=== PATIENT | female | born 1960 | race Caucasian/White ===

== ENCOUNTER → 2017-07-28 | Outpatient (CLI) | payer OTHER | LOC: RAD 08:18 | DX: Z12.31 Encounter for screening mammogram for malignant neoplasm of breast (principal) ==

== ENCOUNTER 2018-02-14 01:40 | Inpatient (IN) | payer OTHER ==
[~2018-02-14] VITALS: Ht 160 cm; Wt 90.7 kg
--- NOTE | ~2018-02-14 | HC ---
[facility] [place] [address] CONSULTATION Name: JENNIFERJOCY Bora Room #: 449-I [facility] IN ..#: [id number] Admission: 02/14/18 Attend Phys: Rocky Avina MD Discharge: 02/14/18 Date of : 60 Report #: [id number] THIS REPORT FOR: //name// CC: Rocky Chauhan REASON FOR CONSULTATION: Atrial fibrillation. HISTORY OF PRESENT ILLNESS: The patient is a 57-year-old woman with history of hypertension and diabetes. She awakened about 1:00 a.m. with palpitations. This was associated with elevated blood pressure. She thought that this was atrial fibrillation as it runs in her family. She presented to the Emergency Department where indeed atrial fibrillation was confirmed, with a rapid ventricular response. In the process of being electrically cardioverted, she converted spontaneously to sinus rhythm. Her symptoms all resolved. She denies chest pain, pressure or ischemic type symptoms. Her last stress test was probably 7 or 8 years ago. No history of near syncope or syncope. No bleeding issues or problems in the past. ALLERGIES: SHE IS ALLERGIC TO PENICILLIN AND SULFA. MEDICATIONS: Include metformin 500 mg daily, levothyroxine 112 mcg daily. PAST MEDICAL HISTORY: Medical records have been reviewed and include a history of hypertension, diabetes, hypothyroidism. 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 She is a nonsmoker, nondrinker. FAMILY HISTORY: Notable for mother with atrial fibrillation. Father had bypass surgery. REVIEW OF SYSTEMS: All systems negative except as that noted above. PHYSICAL EXAMINATION: GENERAL: Reveals a pleasant woman in no distress. VITAL SIGNS: Blood pressure is 146/79, heart rate is 78 and regular. She is afebrile. HEENT: There are neither xanthelasma, subcutaneous xanthomata, oral mucosal or digital cyanosis or kyphoscoliosis present. CHEST: Clear to auscultation and percussion. CARDIAC: Regular rate and rhythm with normal S1, S2. No murmurs or rubs. ABDOMEN: Soft and nontender. EXTREMITIES: Without cyanosis, clubbing or edema. Radial pulses are 2+. NEUROLOGIC: She is alert with a nonfocal exam. LABORATORY DATA: EKG: Atrial fibrillation with a rapid ventricular response. [facility] [address] [place] [address] CONSULTATION Name: JOCY RODRIGUEZ Room #: 449-I [facility].#: [id number] Admission: 02/14/18 Attend Phys: Rocky Avina MD Discharge: 02/14/18 Date of : 60 Report #: [id number] Sodium is 140, potassium 3.5, creatinine 1.2, LDL 131, total cholesterol 229, cholesterol 302. White count 5.8, hemoglobin 14, hematocrit 42, platelet count 200. TSH 2.29. IMPRESSION: 1. Atrial fibrillation, now sinus rhythm. 2. Hypertension. 3. Diabetes. 4. Dyslipidemia. RECOMMENDATIONS: 1. Low dose daily aspirin, metoprolol succinate added. 2. Echocardiogram with Doppler. 3. Stress echocardiogram on medicine for recurrence, consider antiarrhythmic therapy or possible ablation. 4. Consider outpatient event recorder. Low threshold for instituting long-term anticoagulant therapy in light of her elevated -- CHADS-VASc score. By: [id number] Jose Francisco John MD, FACC /nt
--- NOTE | ~2018-02-14 | EKG ---
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 PAREKH : 1960 Requested By: Gifty Bridges Order Number: [id number] MD: Jose Francisco John Measurements Intervals [place] Rate: 98 P: 34 MS: 139 QRS: -8 QRSD: 89 T: 18 QT: 348 QTc: 445 Interpretive Statements Sinus rhythm Poor R wave progression Compared to ECG 07/05/2005 05:30:57 Sinus rhythm has replaced atrial fibrillation Electronically Signed On 02-14-2018 9:16:06 CDT by Jose Francisco John [email or web address] <ELECTRONICALLY SIGNED> By: Jose Francisco John MD, [facility] 02/14/18 0916 0245 0245 Jose Francisco John MD, [facility] /EPI
--- NOTE | ~2018-02-14 | EKG ---
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 STEVE : 1960 Requested By: Jose Francisco John Order Number: [id number] MD: Jose Francisco John Measurements Intervals [place] Rate: 65 P: -6 MI: 144 QRS: 0 QRSD: 91 T: 16 QT: 396 QTc: 412 Interpretive Statements Sinus rhythm Normal tracing Compared to ECG 02/14/2018 02:45:31 Poor R-wave progression no longer present Electronically Signed On 02-14-2018 16:29:42 CDT by Jose Francisco John [email or web address] <ELECTRONICALLY SIGNED> By: Jose Francisco John MD, FAC 02/14/18 1629 1018 1018 Jose rFancisco John MD, [facility] /EPI
--- NOTE | ~2018-02-14 | 2DMMODE ---
[facility] [address] [facility] [place] [address] 2 D/M-MODE ECHOCARDIOGRAM Name: JOCY RODRIGUEZ Room #: 449-I [facility] IN [facility]#: [id number] Admission: 02/14/18 Attend Phys: Rocky Avina, Discharge: Date of : 60 Date of Service: 02/14/18 1000 Report #: [id number] THIS REPORT FOR: //name// APPROVED REPORT Study performed: 02/14/2018 08:37:52 EXAM: Comprehensive 2D, Doppler, and color-flow Echocardiogram Patient Location: Echo lab Room #: [facility] Status: routine BSA: 1.93 HR: 80 bpm BP: 146/79 mmHg Rhythm: NSR Other Information Study Quality: Adequate Indications Atrial Fibrillation Hypertension/HDD 2D Dimensions RVDd: 32.12 mm IVSd: 11.12 (7-11mm) LVOT Diam: 20.02 (18-24mm) LVDd: 40.66 mm PWd: 10.70 (7-11mm) Ascending Ao: 30.67 (22-36mm) LVDs: 25.16 (25-40mm) Aortic Root: 29.60 mm IVC: 15.00 mm Volumes Left Atrial Volume (Systole) Single Plane 4CH: 49.72 mL Single Plane 2CH: 40.89 mL LA ESV Index: 28.00 mL/m2 Aortic Valve AoV Peak Jac.: 1.47 m/s AO Peak Gr.: 8.69 mmHg LVOT Max P.85 mmHg LVOT Max V: 1.10 m/s SAYDA Vmax: 2.35 cm2 Mitral Valve E/A Ratio: 1.5 MV Decel. Time: 162.55 ms [facility] [place] [address] [place] [address] 2 D/M-MODE ECHOCARDIOGRAM Name: JOCY RODRIGUEZ Room #: [facility] IN [facility]#: [id number] Admission: 02/14/18 Attend Phys: Rocky Avina, Discharge: Date of : 60 Date of Service: 02/14/18 1000 Report #: [id number] MV E Max Jac.: 0.90 m/s MV A Jac.: 0.62 m/s MV PHT: 47.14 ms IVRT: 101.50 ms Pulmonary Valve PV Peak Jac.: 1.15 m/s PV Peak Gr.: 5.25 mmHg Pulmonary Vein P Vein S: 0.76 m/s P Vein A: 0.43 m/s P Vein D: 0.52 m/s P Vein A Dur.: 96.9 msec P Vein S/D Ratio: 1.46 Left Ventricle The left ventricle is normal size. There is normal LV segmental wall motion. There is normal left ventricular wall thickness. Left ventricular systolic function is normal. The left ventricular ejection fraction is within the normal range. LVEF is 55-60%. The left ventricular diastolic function is normal. Right Ventricle The right ventricle is normal size. The right ventricular systolic function is normal. Atria The left atrium size is normal. The right atrium size is normal. Aortic Valve The aortic valve is normal in structure. No aortic regurgitation is present. There is no aortic valvular stenosis. Mitral Valve The mitral valve is normal in structure. Trace mitral regurgitation. No evidence of mitral valve stenosis. Tricuspid Valve The tricuspid valve is normal in structure. There is no tricuspid valve regurgitation noted. Pulmonic Valve The pulmonary valve is normal in structure. There is no pulmonic valvular regurgitation. Great Vessels The aortic root is normal in size. IVC is normal in size and [place] [id number] 2 D/M-MODE ECHOCARDIOGRAM Name: JOCY RODRIGUEZ Room #: 449-I [facility] IN ..#: [id number] Admission: 02/14/18 Attend Phys: Rocky Avina, Discharge: Date of : 60 Date of Service: 02/14/18 1000 Report #: [id number] collapses >50% with inspiration. Pericardium There is no pericardial effusion. <Conclusion> 1. Normal echocardiogram with Doppler. EF 60% 2. No pericardial effusion <ELECTRONICALLY SIGNED> By: Jose Francisco John MD, FACC 02/14/18 1000 1000 1000 Jose Francisco John MD, [facility] /INF
--- NOTE | ~2018-02-14 | EKG ---
[address] [place] [address] ELECTROCARDIOGRAM REPORT Name: JOCY RODRIGUEZ Room #: 449-I ADM IN ..#: [id number] Admission: 02/14/18 Attend Phys: Rocky Avina MD Discharge: Date of : 60 Report #: [id number] THIS REPORT FOR: //name// [facility] ED Test Date: 2018-02-14 Test Time: 02:00:14 Pat Name: JOCY RODRIGUEZ Department: Room: [facility] Gender: F Cell Lead: batool : 1960 Requested By: Gifty Bridges Order Number: [id number] MD: Jose Francisco John Measurements Intervals [place] Rate: 159 P: SD: QRS: 5 QRSD: 88 T: 183 QT: 252 QTc: 410 Interpretive Statements Atrial fibrillation with a rapid ventricular response Repolarization abnormality, prob rate related Compared to ECG 07/05/2005 05:30:57 Atrial fibrillation has replaced sinus rhythm Electronically Signed On 02-14-2018 9:14:17 CDT by Jose Francisco John [email or web address] <ELECTRONICALLY SIGNED> By: Jose Francisco John MD, [facility] 02/14/18 0914 9 Jose Francisco John MD, [facility] /EPI
[2018-02-14 02:10] VITALS: BP 153/88
[2018-02-14] MEDS ORDERED: SYNTHROID112 MC1 PO (02:23)
[2018-02-14] MEDS ORDERED: METFORMIN HCL500 MG PO (02:23)
[2018-02-14 02:35] LABS: AMP/METHAMP Negative (Negative); BARBITURATES Negative (Negative); BENZODIAZEPINES Negative (Negative); COCAINE Negative (Negative); METHADONE Negative (Negative); OPIATES Negative (Negative); PCP Negative (Negative)
[2018-02-14 02:43] VITALS: BP 144/85
[2018-02-14 02:59] LABS: ANION GAP 14 mmol/L (7-16); BUN 19 mg/dL (7-18); CALCIUM 9.3 mg/dL (8.5-10.1); CHLORIDE 104 mmol/L (98-107); CO2 22 mmol/L (21-32); CREATININE 1.2 mg/dL (0.6-1.0); GLUCOSE 166 mg/dL (74-106); POTASSIUM 3.5 mmol/L (3.5-5.1); SODIUM 140 mmol/L (136-145)
[2018-02-14 03:09] LABS: SGOT 32 U/L (15-37); TOTAL BILIRUBIN 0.3 mg/dL (<0.1-1.0); TOTAL PROTEIN 7.3 g/dL (6.4-8.2)
[2018-02-14 03:17] LABS: ABSOLUTE NEUTROPHILS 3.5 thou/uL (1.4-8.2); BASOPHILS 0.8 % (0.0-2.0); EOSINOPHILS 1.5 % (0.0-3.0); HEMATOCRIT 42.4 % (37.0-47.0); HEMOGLOBIN 14.1 gm/dL (12.0-15.0); LYMPHOCYTES 27.2 % (24.0-44.0); MCH 29.7 pg (26.0-34.0); MCHC 33.3 g/dL (28.0-37.0); MCV 89.2 fL (80.0-100.0); MONOCYTES 10.8 % (1.0-8.0); PLATELET COUNT 200 thou/uL (150-400); POLYS 59.7 % (36.0-66.0); RBC 4.75 mil/uL (4.20-5.00); RDW 12.6 % (10.5-14.5); WBC 5.8 thou/uL (4.0-11.0)
[2018-02-14 03:28] LABS: ALBUMIN 4.1 g/dL (3.4-5.0); SGPT 57 U/L (30-65); TROPONIN-I <0.06 ng/mL (<0.06)
[2018-02-14 04:34] VITALS: BP 141/85
[2018-02-14 04:36] LABS: LARGE PLATELETS OCCASIONAL
[2018-02-14 05:00] VITALS: BP 173/96
[2018-02-14 05:42] LABS: CHOLESTEROL 229 mg/dL (<200); HDL CHOLESTEROL 38 mg/dL (>40); LDL CHOLESTEROL 131 mg/dL (<100); TRIGLYCERIDE 302 mg/dL (<150); VLDL 60 mg/dL (<40)
[2018-02-14 05:52] LABS: SERUM ASSESSMENT Clear
[2018-02-14 07:29] VITALS: BP 146/79
[2018-02-14] MEDS ORDERED: METOPROLOL SUCC50 MG PO (09:19)
[2018-02-14] MEDS ORDERED: ASPIR 8181 MG PO (09:19)
[2018-02-14] MEDS ORDERED: LIPITOR40 MG PO (09:19)
[2018-02-14] MEDS ORDERED: LISINOPRIL10 MG PO (09:19)
[2018-02-14 22:06] LABS: GLYCOHEMOGLOBIN (HGB A1C) 5.9 % (4.8-5.6)
== END 2018-02-14 10:36 | disposition home or self-care (01) | DRG 310 ==
LOC: ER 01:40 → EROBS 03:53 → 4W 03:53
PROVIDERS: Nurse Practitioner Acute Care; Student in an Organized Health Care Education/Training Program
DX: I48.0 Paroxysmal atrial fibrillation (principal); I10 Essential (primary) hypertension; E11.9 Type 2 diabetes mellitus without complications; E03.9 Hypothyroidism, unspecified; E78.5 Hyperlipidemia, unspecified; Z79.84 Long term (current) use of oral hypoglycemic drugs; Z79.899 Other long term (current) drug therapy; Z88.0 Allergy status to penicillin; Z88.2 Allergy status to sulfonamides; Z82.49 Family history of ischemic heart disease and other diseases of the circulatory system
CPT/HCPCS: 10045

== ENCOUNTER → 2018-03-07 | Outpatient (CLI) | payer OTHER ==
[~2018-03-07] MED LIST: ASPIR 8181 MG PO; LIPITOR40 MG PO; LISINOPRIL10 MG PO; METFORMIN HCL500 MG PO; METOPROLOL SUCC50 MG PO; SYNTHROID112 MC1 PO
== END ==
LOC: ULTRA 07:15
DX: R10.84 Generalized abdominal pain (principal); R10.13 Epigastric pain

== ENCOUNTER → 2018-03-13 | Outpatient (CLI) | payer OTHER | LOC: NUC 07:45 | DX: R10.11 Right upper quadrant pain (principal); R10.12 Left upper quadrant pain; R10.13 Epigastric pain ==

== ENCOUNTER → 2018-03-26 | Outpatient (CLI) | payer OTHER ==
--- NOTE | ~2018-03-26 | PATH ---
[facility] [address] [address] PATHOLOGY RPT PROCEDURE Name: JOCY RODRIGUEZ Room #: REG David Chuck.#: [id number] Admission: 03/26/18 Date of : 60 Discharge: Report #: [id number] Path Case #: [id number] [facility] Accession Number: [id number] . 01 Material submitted: . PART A: BX OF SMALL BOWEL R/O CELIAC PART B: BX OF ANTRUM R/O H. PYLORI PART C: POLYP AT SIGMOID COLON . 01 Clinical history: . Pre-OP DX: Mild esophagitis, gastritis Post-OP DX: Diverticulosis, colon polyp, hemorrhoids . 02 Diagnosis: A. Small bowel mucosa, rule out celiac, endoscopic biopsy: - No significant diagnostic abnormalities present. - Negative for villous blunting or increase in intraepithelial lymphocytes. . B. Gastric mucosa, antrum, endoscopic biopsy: - Mild chronic gastritis with features of reactive gastropathy. - Negative for intestinal metaplasia or atrophy. - Negative for Helicobacter pylori (properly controlled immunohistochemical stain performed). . C. Polyp, at sigmoid colon, endoscopic biopsy: - Traditional serrated adenoma. - Negative for high grade dysplasia. - Inked margins showing unremarkable mucosa. - Second fragment received in container showing a traditional serrated adenoma without high grade dysplasia. (IUV/db; 03/27/18) LBQ/03/27/2018 . 02 Electronically signed: . Shanice Weiss MD, Pathologist NPI- [id number] . 01 Gross description: . A. Received in formalin labeled "Jocy Rodriguez, BX of small bowel, rule out celiac," are 2 segments of juarez soft tissue measuring 0.6 x 0.2 x 0.2 cm in aggregate dimensions and measuring 0.3 cm each in maximum dimension. The specimen is submitted entirely in cassette A1. . B. Received in formalin labeled "Jocy Rodriguez, BX of antrum, rule out H. pylori," are 2 segments of juarez soft tissue measuring 0.5 x 0.2 x 0.2 cm in aggregate dimensions and ranging from 0.2 to 0.3 cm in maximum dimension. [facility] [address] [place] [address] PATHOLOGY RPT PROCEDURE Name: JOCY RODRIGUEZ Room #: REG CLI Christiano#: [id number] Admission: 03/26/18 Date of : 60 Discharge: Report #: [id number] Path Case #: [id number] The specimen is submitted entirely in cassette B1. . C. Received in formalin labeled "Jocy Rodriguez, polyp at sigmoid colon," is a 0.6 x 0.5 x 0.4 cm polypoid piece of juarez soft tissue with a stalk measuring 0.8 cm in length and 0.3 cm in diameter. The margin of the stalk is inked and the specimen is sectioned perpendicular to the margin and entirely submitted in cassette C1. Additionally received in the same container is a single segment of juarez soft tissue measuring 0.5 cm in maximum dimension. The specimen is submitted entirely in cassette C2. (TSD; 03/26/2018) TOB/TOB . 02 Pathologist provided ICD-10: K29.50, K31.9, D12.5 . 02 CPT . 172152, 314306, [id number] Specimen Comment: Report sent to / DR PARDO Performed at: [address], [place], [place] [id number] MD Lior Conklin MD Phone: [phone] Performed at: [address] [id number] MD Shanice Weiss MD Phone: [phone]
== END | disposition home or self-care (01) ==
LOC: GI 13:26
DX: Z12.11 Encounter for screening for malignant neoplasm of colon (principal); K57.30 Diverticulosis of large intestine without perforation or abscess without bleeding; D12.5 Benign neoplasm of sigmoid colon; K64.8 Other hemorrhoids; K29.50 Unspecified chronic gastritis without bleeding; K31.9 Disease of stomach and duodenum, unspecified; K20.8 Other esophagitis; E11.9 Type 2 diabetes mellitus without complications; I48.91 Unspecified atrial fibrillation; E07.9 Disorder of thyroid, unspecified; Z88.0 Allergy status to penicillin; Z88.2 Allergy status to sulfonamides; Z87.19 Personal history of other diseases of the digestive system; Z98.890 Other specified postprocedural states; Z79.899 Other long term (current) drug therapy; Z79.82 Long term (current) use of aspirin
CPT/HCPCS: 62110; 62900

== ENCOUNTER → 2018-08-17 | Outpatient (CLI) | payer OTHER | LOC: RAD 09:35 | DX: Z12.31 Encounter for screening mammogram for malignant neoplasm of breast (principal) ==

== ENCOUNTER → 2019-09-04 | Outpatient (CLI) | payer OTHER | LOC: RAD 08:04 | DX: Z12.31 Encounter for screening mammogram for malignant neoplasm of breast (principal) ==

== ENCOUNTER → 2020-06-02 | Outpatient (CLI) | payer OTHER ==
[2020-06-03 02:06] LABS: GLYCOHEMOGLOBIN (HGB A1C) 5.9 % (4.8-5.6)
== END ==
LOC: LAB 15:09
PROVIDERS: ATTEND Nurse Practitioner
DX: E11.00 Type 2 diabetes mellitus with hyperosmolarity without nonketotic hyperglycemic-hyperosmolar coma (NKHHC) (principal)

== ENCOUNTER → 2020-09-14 | Outpatient (CLI) | payer OTHER | LOC: BC 08:06 | PROVIDERS: ATTEND Nurse Practitioner | DX: Z12.31 Encounter for screening mammogram for malignant neoplasm of breast (principal) ==

== ENCOUNTER → 2020-09-25 | Outpatient (CLI) | payer OTHER ==
[2020-09-25 09:31] LABS: ABSOLUTE NEUTROPHILS 3.4 thou/uL (1.4-8.2); BASOPHILS 0.5 % (0.0-2.0); EOSINOPHILS 1.7 % (0.0-3.0); HEMATOCRIT 41.3 % (37.0-47.0); HEMOGLOBIN 13.8 gm/dL (12.0-15.0); LYMPHOCYTES 31.2 % (24.0-44.0); MCH 30.1 pg (26.0-34.0); MCHC 33.4 g/dL (28.0-37.0); MCV 89.9 fL (80.0-100.0); PLATELET COUNT 208 thou/uL (150-400); POLYS 54.6 % (36.0-66.0); RBC 4.59 mil/uL (4.20-5.00); RDW 13.1 % (10.5-14.5); WBC 6.2 thou/uL (4.0-11.0)
[2020-09-25 09:47] LABS: ANION GAP 11 mmol/L (7-16); BUN 16 mg/dL (7-18); CALCIUM 9.1 mg/dL (8.5-10.1); CHLORIDE 104 mmol/L (98-107); CHOLESTEROL 199 mg/dL (<200); CO2 25 mmol/L (21-32); GLUCOSE 109 mg/dL (74-106); HDL CHOLESTEROL 39 mg/dL (>40); LDL CHOLESTEROL 106 mg/dL (<100); POTASSIUM 4.4 mmol/L (3.5-5.1); SGOT 35 U/L (15-37); SGPT 61 U/L (30-65); SODIUM 140 mmol/L (136-145); TC:HDL 5.1 Ratio (Not establshd); TOTAL BILIRUBIN 0.5 mg/dL (0.2-1.0); TOTAL PROTEIN 6.9 g/dL (6.4-8.2); TRIGLYCERIDE 274 mg/dL (<150); VLDL 55 mg/dL (<40)
== END ==
LOC: LAB 08:57
PROVIDERS: ATTEND Nurse Practitioner
DX: Z01.419 Encounter for gynecological examination (general) (routine) without abnormal findings (principal)